=== PATIENT | female | born 1955 | race Two or more races ===

== ENCOUNTER 2021-01-30 10:28 | Emergency (ER) | payer OTHER ==
[2021-01-30 10:37] VITALS: BP 144/70; PULSE 82; TEMP 97; BMI 24.4
[2021-01-30] MEDS ORDERED: METHOCARBAMOL 500 MG TABLET PO ONE (11:33)
[2021-01-30] MEDS ORDERED: KETOROLAC TROMETHAMINE 30 MG/1 ML VIAL IM ONE (11:33)
[2021-01-30] MEDS ORDERED: LIDOCAINE 5% TOPICAL PATCH TP ONE (11:34)
[2021-01-30] MEDS ORDERED: METHOCARBAMOL 500 MG TABLET ONE (11:41)
[2021-01-30] MEDS ORDERED: KETOROLAC TROMETHAMINE 30 MG/1 ML VIAL ONE (11:41)
[2021-01-30] MEDS ORDERED: LIDOCAINE 5% TOPICAL PATCH ONE (11:41)
== END 2021-01-30 12:39 | disposition home or self-care (01) ==
LOC: JER 10:28
PROC: 3E0233Z Introduction of Anti-inflammatory into Muscle, Percutaneous Approach (ICD-10-PCS; principal; 2021-01-30)
DX: M54.5 Low back pain (principal)
CPT/HCPCS: 72100-TC-FY; 96372; 99284-25

== ENCOUNTER 2022-06-21 10:50 | Emergency (ER) | payer OTHER ==
[2022-06-21 11:51] VITALS: BP 102/64; PULSE 72; RESP 18; TEMP 98.2; BMI 24.7
[2022-06-21] MEDS ORDERED: CYCLOBENZAPRINE HCL 10 MG TABLET (FP) PO ONE (12:50)
[2022-06-21] MEDS ORDERED: LIDOCAINE 5% TOPICAL PATCH TP ONE (12:50)
[2022-06-21] MEDS ORDERED: IBUPROFEN 600 MG TABLET (FP) PO ONE ×2 (12:50→12:54)
[2022-06-21] MEDS ORDERED: ACETAMINOPHEN 325 MG TABLET (FP) PO ONE (12:50)
[2022-06-21] MEDS ORDERED: CYCLOBENZAPRINE HCL 10 MG TABLET (FP) ONE (12:54)
[2022-06-21] MEDS ORDERED: ACETAMINOPHEN 325 MG TABLET (FP) ONE (12:54)
[2022-06-21] MEDS ORDERED: LIDOCAINE 5% TOPICAL PATCH ONE (12:54)
[2022-06-21] MEDS ORDERED: LIDOCAINE PATCH REMOVAL MC SCH (22:00)
== END 2022-06-21 14:02 | disposition home or self-care (01) ==
LOC: JERFT 10:50 → JER 10:50 → JERFT 14:02
DX: M54.41 Lumbago with sciatica, right side (principal)
CPT/HCPCS: 72100-TC-FY; 99283-25

== ENCOUNTER 2022-10-25 10:46 | Emergency (ER) | payer OTHER ==
[2022-10-25 10:55] VITALS: BP 125/98; PULSE 82; RESP 18; TEMP 97.8; BMI 26.9
[2022-10-25] MEDS ORDERED: KETOROLAC TROMETHAMINE 30 MG/1 ML VIAL IM ONE (12:39)
[2022-10-25] MEDS ORDERED: KETOROLAC TROMETHAMINE 30 MG/1 ML VIAL ONE (12:45)
[2022-10-25 13:11] LABS: EPI CELLS 27 /uL (0-25.1); HYALINE CASTS 1 /uL (0-3.1); URINE APPEARANCE CLEAR; URINE BACTERIA 10 /uL (0-1359); URINE BILIRUBIN NEGATIVE (NEGATIVE); URINE COLOR YELLOW; URINE GLUCOSE (UA) 2+ (NEGATIVE); URINE KETONE NEGATIVE (NEGATIVE); URINE LEUK ESTERASE 2+ (NEGATIVE); URINE NITRITE NEGATIVE (NEGATIVE); URINE PROTEIN NEGATIVE (NEGATIVE); URINE RBC 11 /uL (0-23.9); URINE UROBILINOGEN 0.2 mg/dL (0.2-1.0); URINE WBC 73 /uL (0-25.8)
== END 2022-10-25 13:45 | disposition home or self-care (01) ==
LOC: JERFT 10:46
PROC: 3E0233Z Introduction of Anti-inflammatory into Muscle, Percutaneous Approach (ICD-10-PCS; principal; 2022-10-25)
DX: M54.32 Sciatica, left side (principal); N30.00 Acute cystitis without hematuria
CPT/HCPCS: 81003; 87086; 96372; 99284-25

== ENCOUNTER 2022-12-23 17:53 | Emergency (ER) | payer OTHER ==
[2022-12-23 18:01] VITALS: BP 146/82; PULSE 89; RESP 19; TEMP 98.6; BMI 25.2
[2022-12-23] MEDS ORDERED: ACETAMINOPHEN 325 MG TABLET (FP) PO ONE (19:22)
[2022-12-23] MEDS ORDERED: KETOROLAC TROMETHAMINE 15 MG/ML VIAL IM ONE (19:23)
[2022-12-23] MEDS ORDERED: ACETAMINOPHEN 325 MG TABLET (FP) ONE (19:28)
[2022-12-23] MEDS ORDERED: KETOROLAC TROMETHAMINE 15 MG/ML VIAL ONE (19:29)
== END 2022-12-23 19:42 | disposition home or self-care (01) ==
LOC: JERFT 17:53
PROC: 3E0233Z Introduction of Anti-inflammatory into Muscle, Percutaneous Approach (ICD-10-PCS; principal; 2022-12-23)
DX: M79.672 Pain in left foot (principal); M77.30 Calcaneal spur, unspecified foot; G89.29 Other chronic pain
CPT/HCPCS: 96372; 99284-25

== ENCOUNTER 2024-02-10 13:33 | Emergency (ER) | payer OTHER ==
[2024-02-10 14:57] VITALS: BMI 24.0
[2024-02-10] MEDS: ACETAMINOPHEN 1000 MG/100 ML BAG IVPB ONE (14:58)
[2024-02-10] MEDS: ONDANSETRON 4 MG/2 ML VIAL IVPB ONE (14:58)
[2024-02-10] MEDS: LACTATED RINGERS SOLUTION 1,000 ML/1,000 ML INFUS.BAG IV SCH (15:02)
[2024-02-10] MEDS ORDERED: ONDANSETRON 4 MG/2 ML VIAL ONE (15:13)
[2024-02-10] MEDS ORDERED: ACETAMINOPHEN INJECTION 100 ML IVPB ONE (15:13)
[2024-02-10 15:28] LABS: HEMATOCRIT 38.9 % (32.4-45.2); HEMOGLOBIN 12.8 GM/dL (10.7-15.3); MCH 31.3 pg (25.7-33.7); MEAN PLT VOLUME 9.2 fl (7.5-11.1); PLATELET COUNT 211 10^3/uL (134-434); RBC 4.09 M/mm3 (3.60-5.2); RDW 12.8 % (11.6-15.6); WHITE BLOOD COUNT 14.7 K/mm3 (4.0-10.0)
[2024-02-10 15:31] LABS: INR 0.91 (0.83-1.09); PROTHROMBIN TIME (PATIENT) 10.3 SEC (9.7-13.0)
[2024-02-10 15:32] LABS: VENOUS BASE EXCESS -3.5 mmol/L (-2-2); VENOUS O2 SATURATION 85.5 % (70-80); VENOUS PCO2 36.2 mmHg (38-52); VENOUS PH 7.38 (7.310-7.410)
[2024-02-10 15:46] LABS: CALCIUM 10.5 mg/dL (8.5-10.1)
[2024-02-10 15:47] LABS: BLOOD UREA NITROGEN 17.7 mg/dL (7-18)
[2024-02-10 15:49] LABS: ANISOCYTOSIS 1+; MACROCYTOSIS 0
[2024-02-10 15:50] LABS: CREATININE 1.3 mg/dL (0.55-1.3)
[2024-02-10 15:52] LABS: TOT PROT 8.1 g/dl (6.4-8.2)
[2024-02-10 15:57] LABS: LACTIC ACID 3.4 mmol/L (0.4-2.0)
[2024-02-10 18:20] LABS: EPI CELLS 6 /uL (0-25.1); HYALINE CASTS 0 /uL (0-3.1); URINE APPEARANCE CLEAR; URINE BACTERIA 27 /uL (0-1359); URINE BILIRUBIN NEGATIVE (NEGATIVE); URINE COLOR DK YELLOW; URINE GLUCOSE (UA) 3+ (NEGATIVE); URINE KETONE 1+ (NEGATIVE); URINE LEUK ESTERASE 1+ (NEGATIVE); URINE NITRITE NEGATIVE (NEGATIVE); URINE PROTEIN TRACE (NEGATIVE); URINE RBC 17 /uL (0-23.9); URINE WBC 50 /uL (0-25.8)
[2024-02-10 18:51] LABS: LACTIC ACID 3.1 mmol/L (0.4-2.0)
[2024-02-10 19:58] LABS: LACTIC ACID 2.8 mmol/L (0.4-2.0)
[2024-02-10 21:56] LABS: LACTIC ACID 2.1 mmol/L (0.4-2.0)
[2024-02-10] MEDS: LACTATED RINGERS SOLUTION 1000 ML INFUS.BAG IV ONE (22:28)
[2024-02-10 22:35] VITALS: TEMP 98.2
[2024-02-11 00:26] VITALS: BP 105/64; PULSE 109; RESP 20
== END 2024-02-11 05:56 | disposition home or self-care (01) ==
LOC: JER 13:33
PROC: 3E033NZ Introduction of Analgesics, Hypnotics, Sedatives into Peripheral Vein, Percutaneous Approach (ICD-10-PCS; principal; 2024-02-10)
PROC: 3E033GC Introduction of Other Therapeutic Substance into Peripheral Vein, Percutaneous Approach (ICD-10-PCS; 2024-02-10)
DX: R10.32 Left lower quadrant pain (principal); R11.10 Vomiting, unspecified; K59.00 Constipation, unspecified
CPT/HCPCS: 36415; 71045-TC-FY; 74174-TC; 80053; 81003; 82803; 82962; 83605; 83690; 84484; 85025; 85610; 93005; 93010; 96374; 96375; 99285-25; J0131; Q9967

== ENCOUNTER 2024-10-06 16:36 | Emergency (ER) | payer OTHER ==
[2024-10-06 16:46] VITALS: BP 151/60; PULSE 89; RESP 16; TEMP 98.5; BMI 25.4
== END 2024-10-06 18:10 | disposition home or self-care (01) ==
LOC: JERFT 16:36
DX: R21 Rash and other nonspecific skin eruption (principal); B02.8 Zoster with other complications; Z76.0 Encounter for issue of repeat prescription
CPT/HCPCS: 99282-25